=== PATIENT | female | born 1990 | race African-American/Black ===

== ENCOUNTER 2016-08-03 09:18 | Emergency (ER) | payer MEDICAID ==
[~2016-08-03] VITALS: Ht 162.6 cm; Wt 87.0 kg
[~2016-08-03 09:18] MED LIST: ALBU05; BECL8.7A5
[2016-08-03] MEDS ORDERED: NAPROXEN 500MG TABLET PO ONE (10:00)
[2016-08-03] MEDS ORDERED: IBUPROFEN 600MG TABLET PO ONE (10:15)
[2016-08-03 10:20] VITALS: BP 123/89
== END 2016-08-03 11:44 | disposition home or self-care (01) ==
LOC: ER 09:44
DX: S93.401A Sprain of unspecified ligament of right ankle, initial encounter (principal); S90.31XA Contusion of right foot, initial encounter; M20.11 Hallux valgus (acquired), right foot; I10 Essential (primary) hypertension; J45.909 Unspecified asthma, uncomplicated; F17.200 Nicotine dependence, unspecified, uncomplicated; Z87.440 Personal history of urinary (tract) infections; W01.0XXA Fall on same level from slipping, tripping and stumbling without subsequent striking against object, initial encounter; Y93.89 Activity, other specified; Y99.8 Other external cause status; Y92.89 Other specified places as the place of occurrence of the external cause
CPT/HCPCS: 73610; 73630; 99284